=== PATIENT | female | born 1990 | race Caucasian/White ===

== ENCOUNTER 2017-08-07 03:01 | Inpatient (IN) | payer OTHER ==
[2017-08-07] VITALS (18 sets, daily range): BP systolic 103–131; BP diastolic 53–78
[~2017-08-07] VITALS: Ht 170.2 cm; Wt 86.6 kg
[2017-08-07] MEDS ORDERED: PRENATAL ONE T1 EACH PO (03:47)
[2017-08-07 09:36] LABS: EOSINOPHIL (%) 0.2 % (0-5); HEMATOCRIT 38.8 % (36.0-46.0); IMMATURE GRANULOCYTE (%) 0.4 % (0.0-0.7); IMMATURE GRANULOCYTE COUNT 0.1 K/uL; INSTRUMENT ABS NEUTROPHIL CT 10.8 K/uL; LYMPHOCYTE COUNT 1.7 K/uL (1.0-2.8); MCH 29.5 PG (29.0-34.0); MCHC 33.8 G/DL (30.0-36.0); MCV 87.4 FL (83-99); MEAN PLAT.VOLUME 9.7 uM^3 (9.5-12.4); MONOCYTE (%) 3.5 % (3-12); MONOCYTE COUNT 0.5 K/uL (0-0.8); NEUTROPHIL (%) 83.1 % (45-76); NEUTROPHIL COUNT 10.8 K/uL (1.8-6.4); PLATELET COUNT 228 K/uL (156-360); RBC DIS.WIDTH-CV 12.5 % (11.8-14.6); RBC DIS.WIDTH-SD 39.8 % (39-53); RED BLOOD COUNT 4.44 M/uL (3.80-5.20)
[2017-08-07] MEDS ORDERED: IBUPROFEN800 MG PO (18:47)
[2017-08-08 06:31] LABS: EOSINOPHIL (%) 0.4 % (0-5); EOSINOPHIL COUNT 0.1 K/uL (0-0.3); IMMATURE GRANULOCYTE (%) 0.4 % (0.0-0.7); IMMATURE GRANULOCYTE COUNT 0.1 K/uL; INSTRUMENT ABS NEUTROPHIL CT 12.5 K/uL; LYMPHOCYTE COUNT 2.3 K/uL (1.0-2.8); MCHC 34.9 G/DL (30.0-36.0); MCV 88.9 FL (83-99); MEAN PLAT.VOLUME 10.4 uM^3 (9.5-12.4); MONOCYTE (%) 5.6 % (3-12); MONOCYTE COUNT 0.9 K/uL (0-0.8); NEUTROPHIL (%) 79.1 % (45-76); NEUTROPHIL COUNT 12.5 K/uL (1.8-6.4); PLATELET COUNT 241 K/uL (156-360); RBC DIS.WIDTH-CV 12.9 % (11.8-14.6); RBC DIS.WIDTH-SD 42.2 % (39-53); RED BLOOD COUNT 4.16 M/uL (3.80-5.20); WHITE BLOOD COUNT 15.9 K/uL (4.1-10.2)
[2017-08-08 07:42] VITALS: BP 108/66
[2017-08-08 15:00] VITALS: BP 126/72
== END 2017-08-08 21:26 | disposition home or self-care (01) | DRG 775 ==
LOC: LDRP-OP 03:01 → 2WEST 03:02 → LDRP-OP 09-03 14:36
PROVIDERS: Midwife
DX: O66.0 Obstructed labor due to shoulder dystocia (principal); Z3A.40 40 weeks gestation of pregnancy; Z37.0 Single live birth
CPT/HCPCS: 85025